=== PATIENT | female | born 1995 ===

== ENCOUNTER 2018-03-30 00:35 | Emergency (ER) | payer SELFPAY ==
[2018-03-30] MEDS ORDERED: Pantoprazole 80 MG in Sodium Chloride 0.9% 100 ML IV STA (01:03)
[2018-03-30] MEDS ORDERED: Sodium Chloride 0.9% 2,000 ML IV ONE (01:03)
--- NOTE | 2018-03-30 01:03 | C.PDOC ---
History Of Present Illness 23 year old female is brought to the ED by EMS and Police for alcohol intoxication. Patient was found in the street by Police after drinking. While in the ED patient is actively vomiting large amounts greater than 700 cc of coffee ground emesis. Patient denies SI/HI, hallucinations, injury, fall, trauma. Time Seen by Provider: 03/30/18 01:03 Chief Complaint (Nursing): Substance Abuse History Per: Patient, EMS History/Exam Limitations: intoxication Onset/Duration Of Symptoms: Hrs Current Symptoms Are (Timing): Still Present Suicide/Self Injury Attempted (Context): None Modifying Factor(s): Alcohol Severity: Moderate Pain Scale Rating Of: 4 Associated Symptoms: denies: Depression, Suicidal Thoughts, Suicidal Plan Recent travel outside of the [place]: No Additional History Per: Patient, EMS, Law Enforcement Past Medical History Reviewed: Historical Data, Nursing Documentation, Vital Signs Vital Signs: Last Vital Signs Temp 97.2 F L 03/30/18 00:44 Pulse 77 03/30/18 00:44 Resp 20 03/30/18 00:44 BP 92/61 L 03/30/18 00:44 Pulse Ox 100 03/30/18 00:44 - Medical History PMH: No Chronic Diseases Surgical History: No Surg Hx Family History: States: Unknown Family Hx - Social History Hx Alcohol Use: Yes Hx Substance Use: No Review Of Systems Constitutional: Negative for: Fever, Chills Cardiovascular: Negative for: Chest Pain Respiratory: Negative for: Shortness of Breath Gastrointestinal: Positive for: Abdominal Pain. Negative for: Nausea, Vomiting Skin: Negative for: Rash Psych: Negative for: Depression, Suicidal ideation Physical Exam - Physical Exam Appears: Non-toxic, Other (intoxicated) Skin: Warm, Dry Head: Normacephalic Eye(s): bilateral: Normal Inspection Oral Mucosa: Dry Neck: Supple Chest: Symmetrical Cardiovascular: Rhythm Regular Respiratory: No Rales, No Rhonchi, No Wheezing Gastrointestinal/Abdominal: Soft, Tenderness (mid epigastric), No Guarding, No Rebound Back: Normal Inspection Extremity: Normal ROM Extremity: Bilateral: Atraumatic, Normal Color And Temperature, Normal ROM Pulses: Left Dorsalis Pedis: Normal, Right Dorsalis Pedis: Normal Neurological/Psych: Oriented x3, Normal Speech, Normal Cognition Gait: Steady ED Course And Treatment - Laboratory Results Result Diagrams: 03/30/18 01:40 03/30/18 01:40 O2 Sat by Pulse Oximetry: 100 (ON RA) Pulse Ox Interpretation: Normal Progress Note: Plan: - Labs. - Protonix IV. - IV fluids. - Zofran 4 mg IVP. - UA Disposition Discussed With Dr.: Garret Dickson Comment: accepted the pt on his service and took over the care at 5:35 AM Doctor Will See Patient In The: ED Counseled Patient/Family Regarding: Studies Performed, Diagnosis - Disposition Disposition: HOSPITALIZED Disposition Time: :03 Condition: FAIR Forms: [facility] (Indonesian) - POA Present On Arrival: None - Clinical Impression Clinical Impression: GI bleed, Alcohol intoxication - Scribe Statement The provider has reviewed the documentation as recorded by the Scribe Lex Red All medical record entries made by the Scribe were at my direction and personally dictated by me. I have reviewed the chart and agree that the record accurately reflects my personal performance of the history, physical exam, medical decision making, and the department course for this patient. I have also personally directed, reviewed, and agree with the discharge instructions and d isposition. Decision To Admit - Pt Status Changed To: Hospital Disposition Of: Observation - . Bed Request Type: Regular Admitting Physician: Garret Dickson Patient Diagnosis: GI bleed, Alcohol intoxication
[2018-03-30] MEDS ORDERED: Pantoprazole 80 MG in Sodium Chloride 0.9% 100 ML IVPB SCH (01:30)
[2018-03-30 01:43] LABS: BASO % 0.4 % (0.0-2.0); EOS % 0.1 % (0.0-4.0); HEMOGLOBIN 12.4 g/dL (11.0-16.0); LYMPH # 1.1 K/uL (1.0-4.3); MEAN CELL VOLUME 79.6 fL (81.0-99.0); MEAN CORPUSCULAR HEMOGLOBIN 25.5 pg (27.0-31.0); MEAN PLATELET VOLUME 9.5 fL (7.2-11.7); MONO # 0.4 K/uL (0.0-0.8); MONO % 5.6 % (0.0-10.0); NEUT # 5.3 K/uL (1.8-7.0); NEUT % 77.9 % (50.0-75.0); RBC 4.85 Mil/uL (3.80-5.20); RED CELL DISTRIBUTION WIDTH 13.8 % (11.5-14.5); WHITE BLOOD COUNT 6.8 K/uL (4.8-10.8)
[2018-03-30] MEDS ORDERED: Sodium Chloride 0.9% 1,000 ML ONE ×3 (01:43→05:44)
[2018-03-30 01:51] LABS: INR 1.3; PROTHROMBIN TIME 14.1 SECONDS (9.7-12.2)
[2018-03-30 01:58] LABS: ALB/GLOB RATIO 1.2 (1.0-2.1); ALBUMIN 4.8 g/dL (3.5-5.0); BLOOD UREA NITROGEN 9 mg/dL (7-17); CALCIUM 8.7 mg/dl (8.6-10.4); GFR NON-AFRICAN AMERICAN > 60; LIPASE 127 U/L (23-300)
[2018-03-30 02:05] LABS: ALT/SGPT 23 U/L (9-52); AST/SGOT 34 U/L (14-36)
[2018-03-30 02:40] VITALS: RESP 20
[2018-03-30 03:27] LABS: HCG,QUALITATIVE URINE NEGATIVE (NEGATIVE)
[2018-03-30 03:30] LABS: URINE BACTERIA OCC (<OCC); URINE BILIRUBIN NEGATIVE (NEGATIVE); URINE BLOOD 1+ (NEGATIVE); URINE CLARITY Clear (Clear); URINE COLOR Straw (YELLOW); URINE GLUCOSE (UA) NORMAL (Normal); URINE LEUKOCYTE ESTERASE NEG Leu/uL (Negative); URINE PROTEIN NEGATIVE (NEGATIVE); URINE UROBILINOGEN NORMAL mg/dL (0.2-1.0)
[2018-03-30 03:40] LABS: BARBITURATES, UR NEGATIVE (NEGATIVE); BENZODIAZEPINES, UR NEGATIVE (NEGATIVE); OPIATES, UR NEGATIVE (NEGATIVE); PHENCYCLIDINE, UR NEGATIVE (NEGATIVE)
[2018-03-30] MEDS ORDERED: Sodium Chloride 0.9% 1,000 ML IV ONE (05:31)
[2018-03-30] MEDS ORDERED: Lactated Ringer's 1,000 ML IV SCH (05:45)
[2018-03-30 06:03] VITALS: BP 110/72; PULSE 84; TEMP 98.3; O2SAT 98
== END 2018-03-30 07:15 | disposition short-term general hospital (02) ==
LOC: C.ER 00:35 → C.3T 05:30 → UNDOADMOB 05:30 → C.ER 07:15
DX: K92.2 Gastrointestinal hemorrhage, unspecified (principal); F10.129 Alcohol abuse with intoxication, unspecified
CPT/HCPCS: 80053; 81001; 83690; 84703; 85014; 85018; 85025; 85610; 85730; 86850; 86900; 96361; 96374; 96375; 99283; C9113; G0328; G0480; J2405; J7030